=== PATIENT | female | born 1945 | race Caucasian/White ===

== ENCOUNTER → 2024-01-24 10:39 | Outpatient (REF) | payer MEDICARE, OTHER, SELFPAY | LOC: WDC 10:39 | PROVIDERS: ATTENDING PHYSICIAN Obstetrics & Gynecology Gynecology; FAMILY PHYSICIAN Family Medicine | DX: Z01.419 Encounter for gynecological examination (general) (routine) without abnormal findings (principal); Z12.31 Encounter for screening mammogram for malignant neoplasm of breast | CPT/HCPCS: 77063; 77067 ==

== ENCOUNTER → 2025-02-08 11:12 | Outpatient (REF) | payer MEDICARE, OTHER, SELFPAY | LOC: WDC 11:12 | PROVIDERS: ATTENDING PHYSICIAN Obstetrics & Gynecology Gynecology; FAMILY PHYSICIAN Family Medicine | DX: Z12.39 Encounter for other screening for malignant neoplasm of breast (principal); Z12.31 Encounter for screening mammogram for malignant neoplasm of breast | CPT/HCPCS: 77063; 77067 ==